=== PATIENT | male | born 2000 | race African-American/Black ===

== ENCOUNTER 2019-06-19 00:55 | Emergency (ER) | payer OTHER ==
[~2019-06-19] VITALS: Ht 190.5 cm; Wt 113.4 kg
[2019-06-19 01:20] VITALS: BP 147/85
[2019-06-19] MEDS ORDERED: IV NORMAL SALINE 1000ML BAG 1,000 ML IV SCH (01:30)
[2019-06-19 01:41] LABS: BASO % 1 % (0-3); EOS % 0 % (0-3); HEMATOCRIT 45.8 % (39.0-53.0); HEMOGLOBIN 15.1 g/dL (13.0-17.5); LYMPH # 1.4 x10^3/uL (1.0-4.8); LYMPH % 35 % (24-48); MEAN CORPUSCULAR HEMOGLOBIN 26 pg (25-35); MEAN CORPUSCULAR HGB CONC 33 g/dL (31-37); MEAN CORPUSCULAR VOLUME 80 fL (79-100); MONO # 0.5 x10^3/uL (0.0-1.1); MONO % 12 % (0-9); NEUT # 2.1 x10^3/uL (1.8-7.7); NEUT % 52 % (31-73); PLATELET COUNT 190 x10^3/uL (140-400); RED BLOOD COUNT 5.74 x10^6/uL (4.30-5.70); RED CELL DISTRIBUTION WIDTH 14.3 % (11.5-14.5); WHITE BLOOD COUNT 4.1 x10^3/uL (4.0-11.0)
[2019-06-19 01:41] LABS: BILIRUBIN,URINE MODERATE (NEG); CLARITY,URINE CLEAR; COLOR,URINE YELLOW; NITRITE,URINE NEGATIVE (NEG); PH,URINE 5.5; PROTEIN,URINE NEGATIVE (NEG-TRACE)
--- NOTE | 2019-06-19 01:41 | PHYS DOC ---
Past Medical History Past Medical History: No Pertinent History Past Surgical History: No Surgical History Alcohol Use: None Drug Use: None Adult General Chief Complaint Chief Complaint: ABDOMINAL PAIN HPI HPI 18-year-old male presents to the emergency department with complaints of abdominal pain, nausea, vomiting. Patient was seen June 15 at [facility] diagnosis of viral gastroenteritis and subsequently discharged. He describes abdominal cramping generalized, nausea as well as vomiting. He denies any fever, diarrhea, dysuria. He is here because he's vomited a couple times today and states his symptoms are no better. Nothing makes his symptoms worse, nothing makes symptoms better. He has been trying Zofran of which she was provided upon discharge from [facility]. Review of Systems Review of Systems Constitutional: Denies fever or chills [] Respiratory: Denies cough or shortness of breath [] Cardiovascular: No additional information not addressed in HPI [] GI: + abdominal pain, nausea, vomiting, no bloody stools or diarrhea [] : Denies dysuria or hematuria [] Musculoskeletal: Denies back pain or joint pain [] All other systems were reviewed and found to be within normal limits, except as documented in this note. Current Medications Current Medications Current Medications Medications (Trade) Dose Ordered Sig/[place] Start Time Stop Time Status Last Admin Dose Admin Dicyclomine HCl (Bentyl) 10 mg 1X ONCE 06/19/19 01:45 06/19/19 01:46 DC 06/19/19 01:41 10 MG Ondansetron HCl (Zofran) 4 mg 1X ONCE 06/19/19 01:45 06/19/19 01:46 DC 06/19/19 01:40 4 MG Potassium Bicarbonate (Potassium Effervescent Tablet) 20 meq 1X ONCE 06/19/19 02:15 06/19/19 02:16 UNV Potassium Chloride/Water 100 ml @ 50 mls/hr 1X ONCE 06/19/19 02:15 06/19/19 04:14 Sodium Chloride 1,000 ml @ 1,000 mls/hr Q1H 06/19/19 01:30 06/19/19 02:29 06/19/19 01:41 1,000 MLS/HR Allergies Allergies Allergies Coded Allergies Type Severity Reaction Last Updated Verified No Known Drug Allergies 06/19/19 No Physical Exam Physical Exam Constitutional: Well developed, well nourished, no acute distress, non-toxic appearance. [] HENT: Normocephalic, atraumatic, bilateral external ears normal, oropharynx mois t, no oral exudates, nose normal. [] Eyes: PERRLA, EOMI, conjunctiva normal, no discharge. [] Cardiovascular:Heart rate regular rhythm, no murmur [] Lungs & Thorax: Bilateral breath sounds clear to auscultation [] Abdomen: Bowel sounds normal, soft, no tenderness, no masses, no pulsatile masses. [] Skin: Warm, dry, no erythema, no rash. [] Back: No tenderness, no CVA tenderness. [] Extremities: No tenderness, no edema. [] Neurologic: Alert and oriented X 3, no focal deficits noted. [] Psychologic: Affect normal, judgement normal, mood normal. [] Current Patient Data Vital Signs Vital Signs Date Time Temp Pulse Resp B/P (MAP) Pulse Ox O2 Delivery O2 Flow Rate FiO2 06/19/19 01:20 98.3 97 16 147/85 (105) 97 Room Air 98.3 Lab Values Laboratory Tests Test 06/19/19 01:10 06/19/19 01:16 Urine Collection Type Unknown Urine Color Yellow Urine Clarity Clear Urine pH 5.5 Urine Specific [place] 1.010 Urine Protein Negative mg/dL (NEG-TRACE) Urine Glucose (UA) Negative mg/dL (NEG) Urine Ketones (Stick) >=80 mg/dL (NEG) Urine Blood Small (NEG) Urine Nitrite Negative (NEG) Urine Bilirubin Moderate (NEG) Urine Urobilinogen Dipstick 1.0 mg/dL (0.2 mg/dL) Urine Leukocyte Esterase Negative (NEG) Urine RBC Occ /HPF (0-2) Urine WBC 11-20 /HPF (0-4) Urine Squamous Epithelial Cells Occ /LPF Urine Transitional Epithelial Cells Occ /LPF Urine Bacteria 0 /HPF (0-FEW) Urine Mucus Slight /LPF White Blood Count 4.1 x10^3/uL (4.0-11.0) Red Blood Count 5.74 x10^6/uL (4.30-5.70) H Hemoglobin 15.1 g/dL (13.0-17.5) Hematocrit 45.8 % (39.0-53.0) Mean Corpuscular Volume 80 fL (79-100) Mean Corpuscular Hemoglobin 26 pg (25-35) Mean Corpuscular Hemoglobin Concent 33 g/dL (31-37) Red Cell Distribution Width 14.3 % (11.5-14.5) Platelet Count 190 x10^3/uL (140-400) Neutrophils (%) (Auto) 52 % (31-73) Lymphocytes (%) (Auto) 35 % (24-48) Monocytes (%) (Auto) 12 % (0-9) H Eosinophils (%) (Auto) 0 % (0-3) Basophils (%) (Auto) 1 % (0-3) Neutrophils # (Auto) 2.1 x10^3/uL (1.8-7.7) Lymphocytes # (Auto) 1.4 x10^3/uL (1.0-4.8) Monocytes # (Auto) 0.5 x10^3/uL (0.0-1.1) Eosinophils # (Auto) 0.0 x10^3/uL (0.0-0.7) Basophils # (Auto) 0.0 x10^3/uL (0.0-0.2) Sodium Level 138 mmol/L (136-145) Potassium Level 3.0 mmol/L (3.5-5.1) L Chloride Level 97 mmol/L (98-107) L Carbon Dioxide Level 27 mmol/L (21-32) Anion Gap 14 (6-14) Blood Urea Nitrogen 13 mg/dL (8-26) Creatinine 1.3 mg/dL (0.7-1.3) Estimated GFR (Cockcroft-Gault) 86.0 BUN/Creatinine Ratio 10 (6-20) Glucose Level 92 mg/dL (70-99) Calcium Level 9.1 mg/dL (8.5-10.1) Total Bilirubin 0.5 mg/dL (0.2-1.0) Aspartate Amino Transferase (AST) 35 U/L (15-37) Alanine Aminotransferase (ALT) 24 U/L (16-63) Alkaline Phosphatase 104 U/L (46-116) Total Protein 8.4 g/dL (6.4-8.2) H Albumin 4.1 g/dL (3.4-5.0) Albumin/Globulin Ratio 1.0 (1.0-1.7) Lipase 297 U/L (73-393) Laboratory Tests 06/19/19 01:16 Laboratory Tests 06/19/19 01:16 EKG EKG [] Radiology/Procedures Radiology/Procedures [] Course & Med Decision Making Course & Med Decision Making Pertinent Labs and Imaging studies reviewed. (See chart for details) []18-year-old male presents to the emergency department with complaints of abdominal pain, nausea, vomiting. Patient was seen June 15 at [facility] diagnosis of viral gastroenteritis and subsequently discharged. He describes abdominal cramping generalized, nausea as well as vomiting. He denies any fever, diarrhea, dysuria. He is here because he's vomited a couple times today and states his symptoms are no better. Nothing makes his symptoms worse, nothing makes symptoms better. He has been trying Zofran of which she was provided upon discharge from [facility]. Laboratory values reviewed, white blood cell count 4.1, potassium 3.0. Patient improved after Bentyl, Zofran, IV fluids K replaced by mouth. Recommend discharge home with symptomatic treatment Continue Zofran, perception for Bentyl provided Plan follow-up primary care physician as an outpatient Return precautions provided Dragon Disclaimer Dragon Disclaimer This electronic medical record was generated, in whole or in part, using a voice recognition dictation system. Departure Departure Impression: Primary Impression: Viral gastroenteritis Additional Impression: Hypokalemia Disposition: HOME, SELF-CARE Condition: IMPROVED Referrals: RAINA HERNANDEZ (PCP) Patient Instructions: Viral Gastroenteritis, [id number] Additional Instructions: Recommend follow up with PCP 3 - 5 days Return to the ER with worsening symptoms, intractable pain, fever, altered mental status Tylenol/Motrin as needed for pain Take new medications as prescribed Potassium low in ER and replaced Scripts Dicyclomine Hcl (DICYCLOMINE HCL) 10 Mg Capsule 1 CAP PO PRN Q6HRS, #20 CAP 3 Refills Prov: MALINA PENA MD 06/19/19 Ondansetron Hcl (ZOFRAN) 4 Mg Tablet 1 TAB PO Q6HRS, #20 TAB Prov: MALINA PENA MD 06/19/19 Problem Qualifiers MALINA PENA MD Jun 19, 2019 01:41
[2019-06-19] MEDS ORDERED: ONDANSETRON PF 4 MG/2 ML VIAL. IV ONE (01:45)
[2019-06-19] MEDS ORDERED: DICYCLOMINE 20 MG/2 ML AMPUL. IM ONE (01:45)
[2019-06-19 01:53] LABS: ALBUMIN 4.1 g/dL (3.4-5.0); CALCIUM 9.1 mg/dL (8.5-10.1); CREATININE 1.3 mg/dL (0.7-1.3); TOTAL BILIRUBIN 0.5 mg/dL (0.2-1.0); TOTAL PROTEIN 8.4 g/dL (6.4-8.2)
[2019-06-19 01:58] LABS: BACTERIA,URINE 0 /HPF (0-FEW); RBC,URINE OCC /HPF (0-2); SQUAMOUS EPITHELIAL CELL,UR OCC /LPF
[2019-06-19] MEDS ORDERED: POTASSIUM CHLORIDE 20MEQ 100 ML IV ONE (02:15)
[2019-06-19] MEDS ORDERED: POTASSIUM BICARB 20 MEQ EFFERVESCENT TABLET. PO ONE (02:15)
[2019-06-19] MEDS ORDERED: DICY10CA3 PO (02:21)
[2019-06-19] MEDS ORDERED: ONDA4TAB7 PO (02:21)
== END 2019-06-19 02:45 | disposition home or self-care (01) ==
LOC: ER 00:55
DX: A08.4 Viral intestinal infection, unspecified (principal); E87.6 Hypokalemia; R11.2 Nausea with vomiting, unspecified
CPT/HCPCS: 36415; 80053; 81001; 83690; 85025; 87086; 96361; 96372; 96374; 99284; J0500; J2405; J7030